=== PATIENT | female | born 1955 | race Caucasian/White ===

== ENCOUNTER → 2019-06-09 13:32 | Outpatient (CLI) | payer OTHER, MEDICAID, SELFPAY ==
--- NOTE | 2019-06-09 | DI.RAD.S_ITS ---
PROCEDURE: XR LUMBAR SPINE 2-3V INDICATIONS: LOW BACK PAIN TECHNIQUE: 3 views of the lumbar spine were acquired. COMPARISON: None. FINDINGS: Bones: 5 [id number] vertebrae are present. There is normal bony alignment. No vertebral body compression fractures. No suspicious bony lesions. Degenerative disc disease is moderate at L4-5 and L5-S1. Facet osteoarthritis appears moderately severe at these 2 levels. Soft tissues: Overlying bowel gas pattern is normal. No suspicious soft tissue calcifications. IMPRESSION: The upper and middle thirds of the LS spine appear normal but there is moderate degenerative disc disease and facet osteoarthritis is moderately severe at L4-5 and L5-S1 with likely to significant spinal and foraminal stenosis at these 2 levels. Dictated by: Gerard Gomez M.D. on 06/09/2019 at 15:32 Approved by: Gerard oGmez M.D. on 06/09/2019 at 15:33
== END ==
PROVIDERS: Visit Provider Family Medicine
DX: M54.5 Low back pain (principal); M51.36 Other intervertebral disc degeneration, lumbar region; M51.37 Other intervertebral disc degeneration, lumbosacral region; M47.816 Spondylosis without myelopathy or radiculopathy, lumbar region; M47.817 Spondylosis without myelopathy or radiculopathy, lumbosacral region
CPT/HCPCS: 72100

== ENCOUNTER → 2020-04-29 15:20 | Outpatient (CLI) | payer MEDICARE, MEDICAID, SELFPAY ==
--- NOTE | 2020-04-29 | DI.RAD.S_ITS ---
PROCEDURE: XR LUMBAR SPINE 2-3V INDICATIONS: IDD Lumbar TECHNIQUE: 3 views of the lumbar spine were acquired. COMPARISON: [facility], CR, XR LUMBAR SPINE 2-3V, 06/09/2019, 13:45. FINDINGS: Bones: 5 [id number] vertebrae are present. There is normal bony alignment. No vertebral body compression fractures. No suspicious bony lesions. Moderate L4-L5 degenerative disc changes. Mild L1-L2, L2-L3, L3-L4 and L5-S1 degenerative disc disease. Mild L5-S1 facet arthropathy. Soft tissues: Overlying bowel gas pattern is normal. Atherosclerotic calcifications. IMPRESSION: 1. Multilevel degenerative disc disease. 2. L5-S1 facet arthropathy. 3. No fracture. No acute osseous lesion. If symptoms and/or clinical suspicion for pathology persists, evaluation with MRI should be considered for further assessment. Dictated by: Kendal Delgadillo MD, PhD on 04/29/2020 at 16:07 Approved by: Kendal Delgadillo MD, PhD on 04/29/2020 at 16:08
== END ==
PROVIDERS: PCP Family Medicine; Referring Provider Family Medicine; Visit Provider Family Medicine
DX: M51.36 Other intervertebral disc degeneration, lumbar region (principal); M51.37 Other intervertebral disc degeneration, lumbosacral region; M47.817 Spondylosis without myelopathy or radiculopathy, lumbosacral region
CPT/HCPCS: 72100

== ENCOUNTER 2024-04-14 14:48 | Emergency (ER) | payer MEDICARE, SELFPAY ==
[2024-04-14 15:08] VITALS: BP 148/74; PULSE 93; RESP 18; TEMP 36.6; O2SAT 96; BMI 19.0
--- NOTE | 2024-04-14 15:15 | DI.RAD.S_ITS ---
PROCEDURE: XR WRIST LT MIN 3V INDICATIONS: fall/pain/ bruising TECHNIQUE: 4 views of the wrist were acquired. COMPARISON: None. FINDINGS: Bones: Suspected nondisplaced, extra-articular fracture of the distal radial metadiaphysis. Soft tissues: No suspicious soft tissue calcifications. Chondrocalcinosis. IMPRESSION: Suspected nondisplaced, extra-articular fracture of the distal radial metadiaphysis. Chondrocalcinosis, which can be seen in the setting of CPPD, aging, and parathyroid disorders. Dictated by: Eduardo Escobar M.D. on 04/14/2024 at 16:15 Approved by: Eduardo Escobar M.D. on 04/14/2024 at 16:16
--- NOTE | 2024-04-14 15:15 | DI.RAD.S_ITS ---
PROCEDURE: XR CLAVICLE LT INDICATIONS: fall/pain/ bruising TECHNIQUE: 2 views of the clavicle were acquired. COMPARISON: [facility], CR, XR SHOULDER LT MIN 2V, 04/14/2024, 15:22. FINDINGS: Bones: Fracture of the distal left clavicle. Mild displacement. No widening of the AC joint. No dislocations. No suspicious bony lesions. Soft tissues: No suspicious soft tissue calcifications. IMPRESSION: Fracture of the distal left clavicle. Dictated by: Satnam Mcfarland M.D. on 04/14/2024 at 15:50 Approved by: Satnam Mcfarland M.D. on 04/14/2024 at 15:51
--- NOTE | 2024-04-14 15:15 | DI.RAD.S_ITS ---
PROCEDURE: XR SHOULDER LT MIN 2V INDICATIONS: fall/pain/ bruising TECHNIQUE: 3 views of the shoulder were acquired. COMPARISON: [facility], [place], XR CLAVICLE LT, 04/14/2024, 15:22. FINDINGS: Bones: Fracture of the distal left clavicle. No additional shoulder fracture. No dislocations. No suspicious bony lesions. Visualized ribs appear intact. Soft tissues: No suspicious soft tissue calcifications. IMPRESSION: Fracture of the distal left clavicle. No additional fracture seen. No dislocation of the glenohumeral joint. Dictated by: Satnam Mcfarland M.D. on 04/14/2024 at 15:51 Approved by: Satnam Mcfarland M.D. on 04/14/2024 at 15:53
--- NOTE | 2024-04-14 15:15 | DI.RAD.S_ITS ---
PROCEDURE: XR HAND LT MIN 3V INDICATIONS: fall/pain/ bruising TECHNIQUE: 3 views of the hand(s) acquired. COMPARISON: None. FINDINGS: Bones: Extra-articular fracture of the proximal 5th phalanx metadiaphysis, with apex volar angulation. Decreased bone mineralization. Soft tissues: No suspicious soft tissue calcifications. IMPRESSION: Extra-articular fracture of the proximal 5th phalanx metadiaphysis. Please see same day wrist series for further discussion. Dictated by: Eduardo Escobar M.D. on 04/14/2024 at 16:16 Approved by: Eduardo Escobar M.D. on 04/14/2024 at 16:17
[2024-04-14] MEDS: OXYCODONE/ACETAMINOPHEN 5/325 TABLET 1 TAB PO (17:11)
[2024-04-14 18:09] VITALS: O2SAT 96
[2024-04-14 18:10] VITALS: BP 163/74; PULSE 71; O2SAT 98
[2024-04-14 18:30] VITALS: PULSE 65; O2SAT 98
[2024-04-14 18:31] VITALS: BP 135/61; PULSE 64; O2SAT 98
--- NOTE | 2024-04-14 18:54 | ED.TRAUMA ---
HPI - Trauma General Chief Complaint: Extremity Injury, Upper Stated Complaint: Fell left side , might have broken left pinky Time Seen by Provider: 04/14/24 18:54 Source: patient, RN notes reviewed and old records reviewed Limitations: no limitations History of Present Illness HPI narrative: 68-year-old female who fell yesterday she had walked out onto her porch states her leg sort of gave out and she fell onto her left side. She has pain in her shoulder although she states she can it pretty well but a lot of bruising. Also has some pain wrist and has discomfort with movement and bruising over of hand. Patient states that she did not hit her head denies any neck or back pain. No loss of consciousness. No chest pain or shortness of breath. States her leg sort of gave out that is happened once or twice in the past but she states it is working normally. She states no numbness tingling or weakness. She describes pain in her shoulder, wrist and fingers on the left hand. Good range of motion she denies any numbness or tingling and states she can move her shoulder pretty well. She does not take any aspirin or anticoagulants. She denies any daily prescriptions. No known drug allergies. She lives at home with family. Related Data Allergies Allergy/AdvReac Type Severity Reaction Status Date / Time No Known Drug Allergies Allergy Verified 04/14/24 15:08 Review of Systems Review of Systems ROS Unobtainable: All systems reviewed & are unremarkable except as noted in HPI and below Patient History Social History Smoking Status: Current every day smoker Smoking Status: Current every day smoker tobacco type: cigarettes alcohol intake frequency: holidays/special occasions only Substance Use Type: does not use Exam Narrative Exam Narrative: GEN: Patient appears in mild distress. HEAD: No evidence of trauma, no raccoon/Stanley sign. NECK: Nontender, painless range of motion, trachea midline Negative Nexus criteria, no midline line tenderness, distracting injury, altered mental status, neuro deficit, recent EtOH. EYES: PERRLA, EOMI ENT: External inspection normal, trachea is midline, Nares are clear, no septal hematoma, no dental or oral injury, airway is normal and with normal occlusion, No bony tenderness RESP: Chest is nontender and has symmetric movement, no ecchymosis, breath sounds are normal no crackles, wheezes or rales CVS: Heart sounds are normal, no murmur noted, No JVD. ABG/GI: Nontender, soft, normal bowel sounds, no distention, no organomegaly, pelvic rock is negative NEURO: Oriented AOx3, neuro is grossly intact, sensation and motor is normal all 4 extremities moving, cranial nerves II through XII are intact, GCS is 15 PSYCH: Normal mood and affect SKIN: Patient has some small abrasions on her right ankle and left knee, warm and dry, no crepitus and without decubitus BACK: No CVA tenderness, no vertebral tenderness, no step-off's, no crepitus EXT: Patient has some swelling and ecchymosis over the distal clavicle that tracks little bit onto her anterior chest, she has tenderness over that distal area but range of motion. She is some tenderness over the distal radius as well. No obvious deformity patient also has 4th and 5th proximal phalanges and metacarpals. Does have full range of motion but has some slight deformity to the 5th phalanx at the proximal joint. Cap refills less than 2 seconds in all 5 fingers. 2+ radial pulse. Hips are nontender, no pedal edema, normal color and temperature, normal range of motion of extremities with normal tendon exam, 2+ pulses in all four extremities Initial Vital Signs Initial Vital Signs: Vital Signs Temperature 97.8 F 04/14/24 15:08 Pulse Rate 93 H 04/14/24 15:08 Respiratory Rate 18 04/14/24 15:08 Blood Pressure 148/74 H 04/14/24 15:08 Pulse Oximetry 96 04/14/24 15:08 Oxygen Delivery Method Room Air 04/14/24 15:08 Course Orders Ordered: Discontinued Medications Diphtheria/Tetanus/Acell Pertussis (Tet,Diph,Pertuss(Acell),Vac/Pf 0.5 Ml Syringe) 0.5 ml IM .ONCE ONE Stop: 04/14/24 19:17 Last Admin: 04/14/24 19:33 Dose: Not Given Documented By: BS Oxycodone/Acetaminophen (Oxycodone/Acetaminophen 5/325 Tablet) 1 tab PO NOW ONE Stop: 04/14/24 16:58 Last Admin: 04/14/24 17:11 Dose: 1 tab Documented By: RB Vital Signs Vital signs: Vital Signs - 8 hr 04/14/24 19:00 04/14/24 19:00 Pulse Rate 62 Blood Pressure 147/66 H Pulse Oximetry 97 Oxygen Delivery Method Room Air MDM - Trauma MDM Narrative Medical decision making narrative: 68-year-old female with what sounds like a mechanical ground level fall yesterday denies hitting her head no loss of consciousness. GCS 15. She was not on any anticoagulants. Left clavicle x-ray shows fracture of the distal left clavicle. Mild displacement no widening of the AC joint no dislocation. Shoulder x-ray shows fracture of the distal left clavicle no dislocations no suspicious soft tissue calcifications. Left wrist x-ray shows suspected nondisplaced extra-articular fracture distal radial metaphysis, chondrocalcinosis which can be seen in the setting of CP DPD aging and parathyroid disorders. Hand x-ray shows extra-articular fracture of the proximal 5th phalan[address]ysis[address] Dr. Perez, orthopedic surgery would recommend kia taping the finger with aluminum splint over it and either volar slab or wrist brace alternative would to be an ulnar gutter and then sling for patient's clavicle fracture. She did review all of patient's imaging. Patient was placed in velcro wrist splint with kia taping and aluminum splint in the lateral side patient tolerated this well. This was done by nursing and myself. Patient also given a sling. Discussed return precautions all questions answered. Patient defers anything for pain. Discharge Plan Departure Patient Disposition: Home Clinical Impression: Closed fracture of left clavicle, Distal radius fracture, left, Finger fracture, left Instructions: DI for Clavicle Fracture-Adult, DI for Finger Fracture Activity Restrictions/Additional Instructions: Please follow-up with orthopedic surgery, call the contact below to set up follow up in the next week. Your imaging shows a fracture of your distal clavicle, fracture of the distal radius or wrist as well as the 5th phalanx or pinky finger on your hand. Continue to wear your splint until cleared by Orthopedic surgery or primary care. You can take acetaminophen up to a 1000 mg every 6 hours as needed for pain and/or ibuprofen up to 600 mg every 6 hours needed for pain. Splint Care: Keep splint clean and dry. Elevated affected body part to decrease swelling. OK to use ice pack on the affected body part. Use for 15-20 minutes each time, for 5-6x per day. If you develop worsening pain, numbness, tingling, discoloration of the affected body part, adjust your sling and/or splint, and either see your doctor for an urgent re-assessment, or return to the Emergency Department. Return to the Emergency Department for any new or worsening symptoms. Referrals: Drea Perez MD [Physician] - Alexi Whitten MD [Primary Care Provider] - Stand Alone Forms: Patient Portal/API/Survey
[2024-04-14 19:00] VITALS: BP 147/66; PULSE 62; O2SAT 97
== END 2024-04-14 19:30 | disposition home or self-care (01) ==
PROVIDERS: Emergency Provider Emergency Medicine; PCP Family Medicine
DX: S42.032A Displaced fracture of lateral end of left clavicle, initial encounter for closed fracture (principal); S52.502A Unspecified fracture of the lower end of left radius, initial encounter for closed fracture; S62.617A Displaced fracture of proximal phalanx of left little finger, initial encounter for closed fracture; W18.30XA Fall on same level, unspecified, initial encounter
CPT/HCPCS: 29130; 29260; 73000; 73030; 73110; 73130; 99284